=== PATIENT | male | born 1995 | race Caucasian/White ===

== ENCOUNTER → 2018-03-10 | Outpatient (CLI) | payer SELFPAY ==
[~2018-03-10] MED LIST: AMOXICILLIN500 MG PO; BACTRIM DS 8001 TA1 PO; BENADRYL50 MG PO; CLARITIN10 MG PO; HYDROCODONE BIT1 T11 PO; MEDROL DOSEPAK4 MG PO; MOTRIN,RUFEN800 MG PO; Motrin,Rufen800 MG PO; NAPROSYN500 MG PO; NORCO 325 MG-101 TAB PO; NORCO 5-325 TA1 EACH PO; Orphenadrine C100 MG PO; ZOFRAN4 MG PO
== END | disposition home or self-care (01) ==
LOC: ORTHO 04:02
DX: S62.327D Displaced fracture of shaft of fifth metacarpal bone, left hand, subsequent encounter for fracture with routine healing (principal); X58.XXXD Exposure to other specified factors, subsequent encounter

== ENCOUNTER → 2018-03-30 | Outpatient (CLI) | payer SELFPAY | END | disposition home or self-care (01) | LOC: ORTHO 04:03 | DX: S62.327D Displaced fracture of shaft of fifth metacarpal bone, left hand, subsequent encounter for fracture with routine healing (principal); X58.XXXD Exposure to other specified factors, subsequent encounter ==

== ENCOUNTER 2020-11-22 08:12 | Emergency (ER) | payer SELFPAY ==
[~2020-11-22] VITALS: Ht 182.8 cm; Wt 140.6 kg
[~2020-11-22 08:12] MED LIST changes: +OMEPRAZOLE20 M2 PO; +ZANTAC 150150 MG PO
[2020-11-22 09:29] LABS: BASO # 0.1 10*3/uL (0.0-0.1); BASO % 0.8 % (0.0-1.0); EOS # 1.1 10*3/uL (0.0-0.4); EOS % 10.5 % (1.0-4.0); HEMATOCRIT 44.9 % (42.0-52.0); LYMPH # 1.3 10*3/uL (1.3-4.4); LYMPH % 12.6 % (27.0-41.0); MEAN CELL VOLUME 83.9 fl (80.0-94.0); MEAN CORPUSCULAR HGB 28.4 pg (27.0-31.0); MEAN CORPUSCULAR HGB CONC 33.9 g/dl (33.0-37.0); MEAN PLATELET VOLUME 10.5 fl (9.6-12.3); MONO # 0.7 10*3/uL (0.1-1.0); NEUT # 7.3 10*3/uL (2.3-7.9); NEUT % 68.8 % (47.0-73.0); PLATELET COUNT AUTOMATED 282 10*3/uL (130-400); RED BLOOD COUNT 5.35 10*6/uL (4.50-5.90); RED CELL DISTRI WIDTH 12.5 % (0-14.5); WHITE BLOOD COUNT 10.5 10*3/uL (4.8-10.8)
[2020-11-22 09:49] LABS: ALBUMIN 3.8 gm/dl (3.1-4.5); ALKALINE PHOSPHATASE 59 U/L (45-117); BUN 13 mg/dl (7-24); CHLORIDE 106 mmol/L (98-107); CREATININE 1.04 mg/dL (0.70-1.30); LIPASE 50 U/L (73-393); POTASSIUM 4.2 mmol/L (3.5-5.1); SGOT/AST 17 IU/L (3-35); SGPT/ALT 42 U/L (12-78); SODIUM 135 mmol/L (136-145); TOTAL PROTEIN 7.8 gm/dL (6.4-8.2)
[2020-11-22] MEDS ORDERED: DOXYCYCLINE100 M3 PO (11:32)
== END 2020-11-22 11:35 | disposition home or self-care (01) ==
LOC: ED 08:12
PROVIDERS: Emergency Medicine
DX: A69.20 Lyme disease, unspecified (principal); G51.0 Bell's palsy; F17.200 Nicotine dependence, unspecified, uncomplicated

== ENCOUNTER 2021-01-14 06:46 | Emergency (ER) | payer SELFPAY ==
[~2021-01-14] VITALS: Ht 182.8 cm; Wt 136.1 kg
[~2021-01-14 06:46] MED LIST changes: +DOXYCYCLINE100 M3 PO
[2021-01-14] MEDS ORDERED: Motrin,Rufen800 MG PO (09:10)
== END 2021-01-14 09:14 | disposition home or self-care (01) ==
LOC: ED 06:46
DX: S93.401A Sprain of unspecified ligament of right ankle, initial encounter (principal); F17.200 Nicotine dependence, unspecified, uncomplicated; V29.9XXA Motorcycle rider (driver) (passenger) injured in unspecified traffic accident, initial encounter; Y93.89 Activity, other specified; Y92.89 Other specified places as the place of occurrence of the external cause; Y99.8 Other external cause status

== ENCOUNTER 2021-03-16 00:50 | Emergency (ER) | payer SELFPAY ==
[~2021-03-16] VITALS: Wt 136.1 kg
[2021-03-16] MEDS ORDERED: HYDROCODON-ACE1 EACH PO (03:42)
== END 2021-03-16 03:52 | disposition home or self-care (01) ==
LOC: ED 00:50
DX: S52.602A Unspecified fracture of lower end of left ulna, initial encounter for closed fracture (principal); W51.XXXA Accidental striking against or bumped into by another person, initial encounter; Y93.72 Activity, wrestling; Y92.89 Other specified places as the place of occurrence of the external cause; Y99.8 Other external cause status

== ENCOUNTER 2021-08-20 11:55 | Emergency (ER) | payer SELFPAY ==
[~2021-08-20] VITALS: Wt 136.1 kg
[~2021-08-20 11:55] MED LIST changes: +HYDROCODON-ACE1 EACH PO
== END 2021-08-20 13:26 | disposition home or self-care (01) ==
LOC: ED 11:55
DX: J02.9 Acute pharyngitis, unspecified (principal); R05.9 Cough, unspecified; F17.200 Nicotine dependence, unspecified, uncomplicated

== ENCOUNTER 2021-08-28 20:19 | Emergency (ER) | payer SELFPAY ==
[~2021-08-28] VITALS: Ht 182.8 cm; Wt 136.1 kg
[2021-08-28] MEDS ORDERED: AMOXICILLIN875 MG PO (21:00)
== END 2021-08-28 21:10 | disposition home or self-care (01) ==
LOC: ED 20:19
DX: J32.8 Other chronic sinusitis (principal)

== ENCOUNTER 2021-09-14 04:19 | Emergency (ER) | payer SELFPAY ==
[~2021-09-14] VITALS: Wt 90.7 kg
[~2021-09-14 04:19] MED LIST changes: +AMOXICILLIN875 MG PO
[2021-09-14] MEDS ORDERED: ATARAX,VISTARIL50 MG PO (05:39)
[2021-09-14] MEDS ORDERED: PREDNISONE20 M1 PO (05:39)
== END 2021-09-14 05:48 | disposition home or self-care (01) ==
LOC: ED 04:19
DX: R21 Rash and other nonspecific skin eruption (principal); H57.89 Other specified disorders of eye and adnexa

== ENCOUNTER 2022-09-20 22:57 | Emergency (ER) | payer OTHER ==
[~2022-09-20] VITALS: Ht 182.8 cm; Wt 113.4 kg
[~2022-09-20 22:57] MED LIST changes: +ATARAX,VISTARIL50 MG PO; +PREDNISONE20 M1 PO
[2022-09-21] MEDS ORDERED: NAPROXEN250 MG PO (00:14)
[2022-09-21] MEDS ORDERED: METHOCARBAMOL750 M1 PO (00:14)
== END 2022-09-21 00:44 | disposition home or self-care (01) ==
LOC: ED 22:57
DX: S01.512A Laceration without foreign body of oral cavity, initial encounter (principal); S16.1XXA Strain of muscle, fascia and tendon at neck level, initial encounter; S00.93XA Contusion of unspecified part of head, initial encounter; V89.2XXA Person injured in unspecified motor-vehicle accident, traffic, initial encounter; Y93.89 Activity, other specified; Y92.89 Other specified places as the place of occurrence of the external cause; Y99.8 Other external cause status

== ENCOUNTER 2022-11-25 17:34 | Emergency (ER) | payer SELFPAY ==
[~2022-11-25] VITALS: Ht 182.8 cm; Wt 136.1 kg
[~2022-11-25 17:34] MED LIST changes: +METHOCARBAMOL750 M1 PO; +NAPROXEN250 MG PO
[2022-11-25] MEDS ORDERED: PATADAY5 ML OD (19:03)
== END 2022-11-25 19:26 | disposition home or self-care (01) ==
LOC: ED 17:34
DX: H10.13 Acute atopic conjunctivitis, bilateral (principal); J30.9 Allergic rhinitis, unspecified; Z98.890 Other specified postprocedural states

== ENCOUNTER 2023-06-08 16:35 | Emergency (ER) | payer SELFPAY ==
[~2023-06-08] VITALS: Wt 136.1 kg
[~2023-06-08 16:35] MED LIST changes: +PATADAY5 ML OD
[2023-06-08] MEDS ORDERED: ONDANSETRON4 MG SL (18:17)
== END 2023-06-08 18:28 | disposition home or self-care (01) ==
LOC: ED 16:35
DX: K52.9 Noninfective gastroenteritis and colitis, unspecified (principal); Z20.822 Contact with and (suspected) exposure to COVID-19; R11.2 Nausea with vomiting, unspecified; R05.9 Cough, unspecified; F17.210 Nicotine dependence, cigarettes, uncomplicated; Z98.890 Other specified postprocedural states

== ENCOUNTER 2024-12-29 10:23 | Emergency (ER) | payer SELFPAY ==
[~2024-12-29] VITALS: Ht 182.8 cm; Wt 163.3 kg
[~2024-12-29 10:23] MED LIST changes: +ONDANSETRON4 MG SL
[2024-12-29] MEDS ORDERED: Acetaminophen/Oxycodone 5 MG/325 MG TABLET PO ONE (10:40)
[2024-12-29] MEDS ORDERED: TRAMADOL HCL50 MG PO (11:14)
== END 2024-12-29 11:24 | disposition home or self-care (01) ==
LOC: ED 10:23
DX: M54.50 Low back pain, unspecified (principal); I10 Essential (primary) hypertension; Z79.899 Other long term (current) drug therapy; Z86.14 Personal history of Methicillin resistant Staphylococcus aureus infection; W18.39XA Other fall on same level, initial encounter; Y93.89 Activity, other specified; Y92.89 Other specified places as the place of occurrence of the external cause; Y99.8 Other external cause status